=== PATIENT | female | born 1960 | race Caucasian/White ===

== ENCOUNTER → 2018-02-15 | Outpatient (CLI) | payer OTHER ==
[2018-02-15 17:48] LABS: Basophils # (A) 0.1 k/uL (0-0.2); Basophils % (A) 1 %; Eosinophils # (A) 0.2 k/uL (0-0.7); Eosinophils % (A) 2 %; HCT 44.3 % (34.0-46.0); HGB 14.4 gm/dL (11.4-16.0); Lymphocytes # (A) 2.8 k/uL (1.0-4.8); Lymphocytes % (A) 30 %; MCH 26.1 pg (25.0-35.0); MCHC 32.4 g/dL (31.0-37.0); MCV 80.4 fL (80.0-100.0); Monocytes # (A) 0.5 k/uL (0-1.0); Monocytes % (A) 6 %; Neutrophils # (A) 5.5 k/uL (1.3-7.7); Neutrophils % (A) 60 %; Platelet Count 213 k/uL (150-450); RBC 5.52 m/uL (3.80-5.40); RDW 14.2 % (11.5-15.5); WBC 9.3 k/uL (3.8-10.6)
[2018-02-15 17:51] LABS: Albumin 4.3 g/dL (3.5-5.0); Calcium 9.8 mg/dL (8.4-10.2); Potassium 4.2 mmol/L (3.5-5.1); Total Bilirubin 0.5 mg/dL (0.2-1.3); Total Protein 7.7 g/dL (6.3-8.2)
--- NOTE | 2018-02-15 17:53 | CT ---
EXAMINATION TYPE: CT abdomen pelvis w con DATE OF EXAM: 02/15/2018 COMPARISON: 09/18/2010 HISTORY: Epigastric pain, nausea, and abdominal distention x5 days. CT DLP: 1727.6 mGycm Automated exposure control for dose reduction was used. TECHNIQUE: Helical acquisition of images was performed from the lung bases through the pelvis. CONT RAST: Performed with Oral Contrast and with IV Contrast, patient injected with 100ml mL of Isovue M300. FINDINGS: Lung bases are clear. There is no pleural effusion. Heart size is normal. There is no pericardial eff usion stomach appears normal. Spleen and pancreas appear normal. There is small calcified gallstone. Bile ducts are not dilated. Th ere is mild tortuous dilated splenic vein and also portal veins within the liver consistent with vari uriel. Superior mesenteric vein is not dilated. There is no discrete liver mass. There is no adrenal mass. Kidneys have normal size and contour. There is no hydronephrosis. There is normal contrast opacification of the kidneys. Ureters are not dilated. There is no retroperitoneal ad enopathy. There is no mesenteric adenopathy or edema. Appendix appears normal. I see no intestinal wall thicken ing. There are no dilated loops. There is no ascites. There are a few sigmoid diverticula. There is n o sign of diverticulitis. There is no free fluid in the pelvis. There is no sign of free air. There i s no inguinal hernia or adenopathy. There is narrowing of L5-S1 disc space. The bony pelvis appears i ntact. I see no bony destructive process. Abdominal soft tissues appear unremarkable. IMPRESSION: THERE ARE ISOLATED SIGMOID DIVERTICULA WITHOUT EVIDENCE OF DIVERTICULITIS. THERE ARE SPLENIC AND PORT AL VARICES UNCHANGED. SMALL CALCIFIED GALLSTONE APPEARS NEW.
[2018-02-15 18:31] LABS: Erythrocyte Sedimentation Rate 13 mm/hr (0-20)
== END | disposition home or self-care (01) ==
LOC: RADCTMAIN 15:47
PROVIDERS: ATTEND Family Medicine
DX: K57.30 Diverticulosis of large intestine without perforation or abscess without bleeding (principal); K80.20 Calculus of gallbladder without cholecystitis without obstruction; I86.8 Varicose veins of other specified sites; R10.84 Generalized abdominal pain; K56.609 Unspecified intestinal obstruction, unspecified as to partial versus complete obstruction
CPT/HCPCS: 80053; 85652; 85025; 74177; 36415; Q9967

== ENCOUNTER → 2019-05-13 | Outpatient (CLI) | payer OTHER ==
--- NOTE | 2019-05-14 09:18 | XR ---
EXAMINATION TYPE: XR chest 2V DATE OF EXAM: 05/13/2019 COMPARISON: NONE TECHNIQUE: PA and lateral views submitted. HISTORY: Preop, positive TB skin test FINDINGS: The lungs are clear and there is no pneumothorax, pleural effusion, or focal pneumonia. Upper atrop hic and degenerative changes spine. Apical pleural thickening. No pleural calcifications or granuloma . No overt failure. IMPRESSION: 1. No acute process.
== END | disposition home or self-care (01) ==
LOC: RADXRYALE 16:23
PROVIDERS: ATTEND Physician Assistant Medical
DX: Z11.1 Encounter for screening for respiratory tuberculosis (principal)
CPT/HCPCS: 71046

== ENCOUNTER 2022-01-07 21:47 | Emergency (ER) | payer OTHER ==
[2022-01-07 22:27] VITALS: BP 135/82; RESP 18
[2022-01-07] MEDS ORDERED: ACETAMINOPHEN TAB 500 MG TAB PO STA (23:13)
--- NOTE | 2022-01-07 23:42 | ED ---
General Adult HPI - General Chief complaint: Fever Stated complaint: Fever,irregular urination Time Seen by Provider: 01/07/22 23:07 Source: patient, RN notes reviewed Mode of arrival: ambulatory - History of Present Illness Initial comments: 61-year-old female presents to the emergency Department with complaints of fever and chills, cough and congestion, and body aches, onset this afternoon. States she has had close contact COVID exposure, but tested negative with a home kit. Took Motrin around 1600 today. Also reports concern about possible UTI as she has had some urinary frequency today, though does state she has been riding her bike more often and her perineal area is a bit sore. Denies chest pain, abdominal pain, nausea, vomiting, diarrhea, or hematuria. - Related Data Home Medications Medication Instructions Recorded Confirmed Citalopram Hydrobromide [CeleXA] 40 mg PO DAILY 02/05/15 02/09/15 Esomeprazole Magnesium [NexIUM 22.3 mg PO Q48H 02/05/15 02/09/15 24Hr] Levothyroxine Sodium [Synthroid] 88 mcg PO DAILY 02/05/15 02/09/15 Previous Rx's Medication Instructions Recorded Nirmatrelvir/Ritonavir [Paxlovid 1 each PO BID 5 Days #10 tab 01/08/22 2X150 mg-100 mg (Eua)] Allergies Allergy/AdvReac Type Severity Reaction Status Date / Time cephalexin monohydrate Allergy Rash/Hives,ITCHY Verified 01/07/22 22:27 [From Keflex] MOUTH clarithromycin [From Biaxin] Allergy Rash/Hives,ITCHY Verified 01/07/22 22:27 MOUTH levofloxacin [From Levaquin] Allergy Rash/Hives,ITCHY Verified 01/07/22 22:27 MOUTH Sulfa (Sulfonamide Allergy Rash/Hives, Verified 01/07/22 22:27 Antibiotics) ITCHY MOUTH Review of Systems ROS Statement: Those systems with pertinent positive or pertinent negative responses have been documented in the HPI. ROS Other: All systems not noted in ROS Statement are negative. Past Medical History Past Medical History: GERD/Reflux, Hypertension, Thyroid Disorder Additional Past Medical History / Comment(s): HX OF DIVERTICULITIS History of Any Multi-Drug Resistant Organisms: None Reported Past Surgical History: Hysterectomy, Uterine Ablation Past Anesthesia/Blood Transfusion Reactions: No Reported Reaction Past Psychological History: Depression Smoking Status: Never smoker Past Alcohol Use History: Rare Past Drug Use History: None Reported General Exam Limitations: no limitations (Well-developed, well-nourished ill-appearing female in no acute distress. Initial temperature 98.0, pulse 110, respirations 18, blood pressure 135/82, pulse ox 98% on room air.) General appearance: alert, in no apparent distress ENT exam: Present: normal exam, normal oropharynx, mucous membranes moist Respiratory exam: Present: normal lung sounds bilaterally. Absent: respiratory distress, wheezes, rales, rhonchi, stridor, chest wall tenderness Cardiovascular Exam: Present: regular rate, normal rhythm, tachycardia, normal heart sounds. Absent: systolic murmur, diastolic murmur, rubs, gallop, clicks GI/Abdominal exam: Present: soft, normal bowel sounds. Absent: distended, tenderness, guarding, rebound, rigid Back exam: Absent: CVA tenderness (R), CVA tenderness (L) Neurological exam: Present: alert, oriented X3, CN II-XII intact Psychiatric exam: Present: flat affect Skin exam: Present: warm, dry, intact, normal color Course Vital Signs 01/07/22 01/08/22 01/08/22 22:23 00:14 01:26 Temperature 98 F 100.8 F H 102.1 F H Pulse Rate 110 H 115 H 114 H Respiratory 18 18 Rate Blood Pressure 135/82 O2 Sat by Pulse 98 96 96 Oximetry - Reevaluation(s) Reevaluation #1: 01/08/22 00:37 Upon reassessment, patient continues to be feeling poorly and temperature remains elevated. She will be given a dose of Motrin while remainder of laboratory studies are pending. 01/08/22 01:20 Reports some improvement. Discussed risks and benefits of Paxlovid and patient requests prescription. She will be discharged home with isolation precautions and strict return parameters. Medical Decision Making - Medical Decision Making 61-year-old female with a past medical history of hypertension presents to the emergency department for evaluation of fever, chest congestion, body aches. Upon exam, patient is ill-appearing but in no acute distress. She is febrile and mildly tachycardic. Pulse ox is greater than 98% on room air. Lung sounds are clear to auscultation. Chest x-ray is unremarkable. Laboratory studies show positive Covid. She was given Tylenol and Motrin for fever (which remains elevated upon departure). Prescribed Paxlovid after reviewing home medications. Encouraged to follow up with PCP for a recheck this week. Instructed on isolation precautions. Return parameters were discussed in detail. Patient verbalizes understanding and agrees with this plan. Attending: Gumaro. - Lab Data Lab Results 01/07/22 01/07/22 01/07/22 Range/Units 23:24 23:45 23:45 Urine Color Yellow Urine Appearance Clear (Clear) Urine pH 6.0 (5.0-8.0) Ur Specific [place] 1.018 (1.001-1.035) Urine Protein Negative (Negative) Urine Glucose (UA) Negative (Negative) Urine Ketones Negative (Negative) Urine Blood Negative (Negative) Urine Nitrite Negative (Negative) Urine Bilirubin Negative (Negative) Urine Urobilinogen <2.0 (<2.0) mg/dL Ur Leukocyte Esterase Trace H (Negative) Urine RBC 1 (0-5) /hpf Urine WBC 10 H (0-5) /hpf Ur Squamous Epith Cells 1 (0-4) /hpf Urine Bacteria Rare H (None) /hpf Urine Mucus Rare H (None) /hpf Coronavirus (PCR) Detected A (Not Detectd) Influenza Type A RNA Not Detected (Not Detectd) Influenza Type B (PCR) Not Detected (Not Detectd) - Radiology Data Radiology results: report reviewed, image reviewed Two-view chest x-ray was obtained. Report was reviewed in its entirety. Impres raj per Dr. Estrada is normal chest. No change. Disposition Clinical Impression: Fever, COVID-19 Disposition: HOME SELF-CARE Condition: Stable Instructions (If sedation given, give patient instructions): Coronavirus Disease 2019 (COVID-19) Additional Instructions: Alternate Tylenol and Motrin for fever control. Increase fluids. Consider an electrolyte solution such as Gatorade or Powerade. You are being prescribed the antiviral medication Paxlovid. Current CDC guidelines include isolation at home for the next 5 days, then wearing a mask in public for the subsequent 5 days. Follow-up with your PCP for a recheck via telephone or video visit this week. Return to the emergency department with any new, worsening, or concerning symptoms such as shortness of breath or chest pain. Prescriptions: Nirmatrelvir/Ritonavir [Paxlovid 2X150 mg-100 mg (Eua)] 1 each PO BID 5 Days #10 tab Is patient prescribed a controlled substance at d/c from ED?: No Referrals: Nonstaff,Physician [REFERRING] - 1-2 days Time of Disposition: 01:26
--- NOTE | 2022-01-08 | XR ---
EXAMINATION TYPE: XR chest 2V DATE OF EXAM: 01/07/2022 COMPARISON: 05/13/2019 HISTORY: Cough and congestion TECHNIQUE: 2 view FINDINGS: Heart and mediastinum are normal. Lungs are clear. Diaphragm is normal. Bony thorax is inta ct. IMPRESSION: Normal chest. No change.
[2022-01-08 00:23] LABS: Appearance,Urine Clear (Clear); Bacteria,Urine Rare /hpf; Bilirubin,Urine Negative (Negative); Blood,Urine Negative (Negative); Color,Urine Yellow; Glucose,Urine (UA) Negative (Negative); Ketones,Urine Negative (Negative); Leukocyte Esterase,Urine Trace (Negative); Mucus,Urine Rare /hpf; Nitrite,Urine Negative (Negative); Protein,Urine Negative (Negative); RBC,Urine 1 /hpf (0-5); Specific Gravity,Urine 1.018 (1.001-1.035); Squamous Epithelial Cell,Urine 1 /hpf (0-4); Urobilinogen,Urine <2.0 mg/dL (<2.0); WBC,Urine 10 /hpf (0-5)
[2022-01-08] MEDS ORDERED: IBUPROFEN 600 MG TAB PO STA (00:36)
[2022-01-08 01:27] VITALS: PULSE 114; TEMP 102.1
== END 2022-01-08 01:39 | disposition home or self-care (01) ==
LOC: EC 21:47
DX: U07.1 COVID-19 (principal); I10 Essential (primary) hypertension; K21.9 Gastro-esophageal reflux disease without esophagitis; E07.9 Disorder of thyroid, unspecified; F32.A Depression, unspecified; Z87.891 Personal history of nicotine dependence; Z79.83 Long term (current) use of bisphosphonates; Z79.899 Other long term (current) drug therapy; Z88.1 Allergy status to other antibiotic agents; Z88.2 Allergy status to sulfonamides; Z79.890 Hormone replacement therapy
CPT/HCPCS: 71046; 81001; 87502; 87635; 99283

== ENCOUNTER 2022-12-17 01:01 | Observation (INO) | payer OTHER ==
[2022-12-17] MEDS ORDERED: ASPIRIN 81 MG PO STA (01:23)
--- NOTE | 2022-12-17 01:27 | ED ---
Chest Pain HPI - General Chief Complaint: Chest Pain Stated Complaint: Chest pain Time Seen by Provider: 12/17/22 01:10 Source: family Mode of arrival: wheelchair Limitations: no limitations - History of Present Illness Initial Comments: Patient is a 62-year-old female presenting to the emergency room with complaints of chest tightness and associated shortness of breath at the time of chest tightness which occurred twice prior to arrival however she has no chest pain or shortness of breath at the time of exam. She reports she initially had chest tightness on the left side of her chest and then on the way to the emergency room she developed a tightness again with associated shortness of breath as stated above she has none at this time. She denies any aggravating or alleviating factors to her symptoms previously and her chest tightness is not reproducible. She does admit to high stress levels at home due to recent suicide of her son-in-law with the plans taking place over the last few days. She denies any other complaints or concerns at this time including any abdominal pain, orthopnea, lower extremity swelling, headache, dizziness, diaphoresis, cough, congestion, fevers or chills. She has a past medical history significant for GERD, hypertension, anxiety and depression. - Related Data Home Medications Medication Instructions Recorded Confirmed Citalopram Hydrobromide [CeleXA] 40 mg PO DAILY 02/05/15 02/09/15 Esomeprazole Magnesium [NexIUM 22.3 mg PO Q48H 02/05/15 02/09/15 24Hr] Levothyroxine Sodium [Synthroid] 88 mcg PO DAILY 02/05/15 02/09/15 Allergies Allergy/AdvReac Type Severity Reaction Status Date / Time cephalexin monohydrate Allergy Rash/Hives,ITCHY Verified 12/17/22 01:08 [From Keflex] MOUTH clarithromycin [From Biaxin] Allergy Rash/Hives,ITCHY Verified 12/17/22 01:08 MOUTH levofloxacin [From Levaquin] Allergy Rash/Hives,ITCHY Verified 12/17/22 01:08 MOUTH Sulfa (Sulfonamide Allergy Rash/Hives, Verified 12/17/22 01:08 Antibiotics) ITCHY MOUTH Review of Systems ROS Statement: Those systems with pertinent positive or pertinent negative responses have been documented in the HPI. ROS Other: All systems not noted in ROS Statement are negative. Past Medical History Past Medical History: GERD/Reflux, Hypertension, Thyroid Disorder Additional Past Medical History / Comment(s): HX OF DIVERTICULITIS History of Any Multi-Drug Resistant Organisms: None Reported Past Surgical History: Hysterectomy, Uterine Ablation Past Anesthesia/Blood Transfusion Reactions: No Reported Reaction Past Psychological History: Anxiety, Depression Smoking Status: Never smoker Past Alcohol Use History: Rare Past Drug Use History: None Reported General Exam Limitations: no limitations General appearance: alert, in no apparent distress Head exam: Present: atraumatic, normocephalic, normal inspection Eye exam: Present: normal appearance, PERRL, EOMI. Absent: scleral icterus, conjunctival injection, periorbital swelling ENT exam: Present: normal exam, mucous membranes moist Neck exam: Present: normal inspection, full ROM. Absent: tenderness Respiratory exam: Present: normal lung sounds bilaterally. Absent: respiratory distress, wheezes, rales, rhonchi, stridor, chest wall tenderness Cardiovascular Exam: Present: regular rate, normal rhythm, normal heart sounds. Absent: systolic murmur, diastolic murmur, rubs, gallop, clicks GI/Abdominal exam: Present: soft, normal bowel sounds. Absent: distended, tenderness, guarding, rebound, rigid Extremities exam: Present: normal inspection, normal capillary refill. Absent: pedal edema, joint swelling Back exam: Present: normal inspection, full ROM Neurological exam: Present: alert, oriented X3, CN II-XII intact Psychiatric exam: Present: normal affect, normal mood Skin exam: Present: warm, dry, intact, normal color. Absent: rash Course Vital Signs 12/17/22 12/17/22 12/17/22 01:06 01:08 01:30 Temperature 98.4 F Pulse Rate 71 66 Pulse Rate [ 66 Director Emergency Services ] Respiratory 18 Rate Blood Pressure 154/76 115/87 O2 Sat by Pulse 97 93 L Oximetry 12/17/22 02:00 Temperature Pulse Rate 68 Pulse Rate [ Director Emergency Services ] Respiratory Rate Blood Pressure 116/60 O2 Sat by Pulse 94 L Oximetry Chest Pain MDM - MDM Was pt. sent in by a medical professional or institution (, PA, VICE PRESIDENT OF PROCUREMENT, urgent care, hospital, or custodial...) When possible be specific @ -No Did you speak to anyone other than the patient for history (EMS, parent, family, police, friend...)? What history was obtained from this source @ -No Did you review nursing and triage notes (agree or disagree)? Why? @ -I reviewed and agree with nursing and triage notes Were old charts reviewed (outside hosp., previous admission, EMS record, old EKG, old radiological studies, urgent care reports/EKG's, custodial records)? Report findings @ -No old charts were reviewed Differential Diagnosis (chest pain, altered mental status, abdominal pain women, abdominal pain men, vaginal bleeding, weakness, fever, dyspnea, syncope, headache, dizziness, GI bleed, back pain, seizure, CVA, palpatations, mental health, musculoskeletal)? @ -Differential Chest Pain: Stable Angina, Unstable Angina, STEMI, NSTEMI Aortic Dissection, Pneumothorax, Musculoskeletal, Esophageal Spasm GERD, Cholecystitis, Pancreatitis, Zoster, this is not meant to be an all-inclusive list. EKG interpreted by me (3pts min.). @ -Sinus rhythm, ventricular rate 70 bpm, OH interval 145 ms, QRS duration 97 ms, QT/QTC 409/129 ms, PRT axes 45, 43, 57 X-rays interpreted by me (1pt min.). @ -Chest x-ray: No consolidation, pneumothorax or pleural effusion. CT interpreted by me (1pt min.). @ -None done U/S interpreted by me (1pt. min.). @ -None done What testing was considered but not performed or refused? (CT, X-rays, U/S, labs)? Why? @ -None What meds were considered but not given or refused? Why? @ -None Did you discuss the management of the patient with other professionals (professionals i.e. , PA, VICE PRESIDENT OF PROCUREMENT, lab, RT, psych nurse, high school social science teacher, set up mechanic coil winding machines, teacher, security public safety officer, hospice case manager)? Give summary @ -Yes, Spoke with Dr. Yao with [facility] regarding patient presentation recommendation of observation stay he is accepting of admission and request cardiology consult Was smoking cessation discussed for >3mins.? @ -No Was critical care preformed (if so, how long)? @ -No Were there social determinants of health that impacted care today? How? (Homelessness, low income, unemployed, alcoholism, drug addiction, transportation, low edu. Level, literacy, decrease access to med. care, correction, rehab)? @ -No Was there de-escalation of care discussed even if they declined (Discuss DNR or withdrawal of care, Hospice)? DNR status @ -No What co-morbidities impacted this encounter? (DM, HTN, Smoking, COPD, CAD, Cancer, CVA, ARF, Chemo, Hep., AIDS, mental health diagnosis, sleep apnea, morbid obesity)? @ -None Was patient admitted / discharged? Hospital course, mention meds given and route, prescriptions, significant lab abnormalities, going to OR and other pertinent info. @ -62-year-old female presenting emergency room with complaints of chest tightness with associated shortness of breath prior to her arrival to the emergency room which is present on exam. Risk factors for coronary artery disease include hypertension age and weight. In the setting of chest pain-free will defer nitrate at this time but will give 324 chewable aspirin and start workup for chest pain with chest x-ray, EKG, CBC, CMP, troponins, magnesium, proBNP, coags and d-dimer. Patient with headache 1 g of Tylenol given with improvement in headache symptoms. CBC shows slightly elevated WBC at 10.8 and low MCV at 77.8 no other abnormalities. CMP shows low potassium at 3.3 repleted orally with 40 mEq of potassium, remaining electrolytes including magnesium normal, BUN elevated at 18 with normal creatinine glucose elevated at 136, troponin negative, proBNP normal. Coags and d-dimer normal. EKG demonstrates sinus rhythm. Chest x-ray with no consolidation, infiltration or cardiomegaly. No acute cardiopulmonary process. Findings discussed with patient and spouse at bedside. Advised due to risk factors recommend observation stay for continued evaluation of laboratory studies and telemetry. Patient is agreeable to observation stay. Spoke with Dr. Yao with [facility] regarding patient presentation recommendation of observation stay he is accepting of admission and request cardiology consult will place cardiology consult with admission orders. Will admit patient to observation unit in stable condition under [facility] with consult to cardiology for further evaluation and treatment of chest pain. Undiagnosed new problem with uncertain prognosis? @ -No Drug Therapy requiring intensive monitoring for toxicity (Heparin, Nitro, Insulin, Cardizem)? @ -No Were any procedures done? @ -No Diagnosis/symptom? @ -Hypokalemia Acute, or Chronic, or Acute on Chronic? @ -Acute Uncomplicated (without systemic symptoms) or Complicated (systemic symptoms)? @ -Uncomplicated Side effects of treatment? @ -none Exacerbation, Progression, or Severe Exacerbation] @ -no Poses a threat to life or bodily function? @ -no Diagnosis/symptom? @ -Chest pain Acute, or Chronic, or Acute on Chronic? @ -Acute Uncomplicated (without systemic symptoms) or Complicated (systemic symptoms)? @ -Complicated Side effects of treatment? @ -No Exacerbation, Progression, or Severe Exacerbation? @ -No Poses a threat to life or bodily function? How? (Chest pain, [place], [place], pneumonia, PE, COPD, DKA, ARF, appy, cholecystitis, CVA, Diverticulitis, Homicidal, Suicidal, threat to staff... and all critical care pts) @ -Yes, chest pain with risk factors for coronary artery disease. Case discussed with Dr. Matthews Disposition Clinical Impression: Chest pain Disposition: ADMITTED IP TO THIS HOSP Condition: Stable Referrals: Ashkan Rose DO [Primary Care Provider] - 1-2 days Time of Disposition: 03:05
[2022-12-17] MEDS ORDERED: ACETAMINOPHEN TAB 500 MG TAB PO STA (01:42)
[2022-12-17 01:49] LABS: ALT 19 U/L (4-34); AST 16 U/L (14-36); African American GFR (CKD) 76 (>60 ml/min/1.73 sqM); Alkaline Phosphatase 76 U/L (38-126); Anion Gap 10 mmol/L; Blood Urea Nitrogen 18 mg/dL (7-17); Carbon Dioxide 28 mmol/L (22-30); Chloride 99 mmol/L (98-107); Glucose 136 mg/dL (74-99); Non-African American GFR(CKD) 66 (>60 ml/min/1.73 sqM); Potassium 3.3 mmol/L (3.5-5.1); Sodium 137 mmol/L (137-145); Total Bilirubin 0.5 mg/dL (0.2-1.3); Total Protein 7.2 g/dL (6.3-8.2)
[2022-12-17] MEDS ORDERED: POTASSIUM CHLORIDE ER 20 MEQ TAB.ER PO STA (01:50)
[2022-12-17 01:58] LABS: NT-Pro-B-Type Natriuretic Pept 41 pg/mL
[2022-12-17 02:00] LABS: Basophils # (A) 0.1 k/uL (0-0.2); Basophils % (A) 1 %; Eosinophils # (A) 0.2 k/uL (0-0.7); Eosinophils % (A) 2 %; HCT 40.7 % (34.0-46.0); HGB 14.2 gm/dL (11.4-16.0); Lymphocytes # (A) 3.4 k/uL (1.0-4.8); Lymphocytes % (A) 31 %; MCH 27.2 pg (25.0-35.0); MCV 77.8 fL (80.0-100.0); Mean Platelet Volume 8.2; Monocytes # (A) 0.8 k/uL (0-1.0); Monocytes % (A) 7 %; Neutrophils # (A) 6.1 k/uL (1.3-7.7); Neutrophils % (A) 57 %; Platelet Count 167 k/uL (150-450); RBC 5.23 m/uL (3.80-5.40); RDW 14.2 % (11.5-15.5); WBC 10.8 k/uL (3.8-10.6)
[2022-12-17 02:04] LABS: INR 0.9 (<1.2); Partial Thromboplastin Time 25.7 sec (22.0-30.0); Prothrombin Time 9.7 sec (9.0-12.0)
[2022-12-17] MEDS ORDERED: MORPHINE SULFATE 4 MG/ML SYRINGE IV PRN (02:20)
[2022-12-17] MEDS ORDERED: ACETAMINOPHEN TAB 325 MG TAB PO PRN (02:20)
[2022-12-17] MEDS ORDERED: traMADol 50 MG TAB PO PRN (02:20)
[2022-12-17] MEDS ORDERED: ONDANSETRON 4 MG/2 ML VIAL IVP PRN (02:20)
[2022-12-17] MEDS ORDERED: NALOXONE 0.4 MG/ML 1 ML VIAL IV PRN (02:20)
--- NOTE | 2022-12-17 04:45 | XR ---
EXAM: XR Chest, 2 Views CLINICAL HISTORY: ITS.REASON XR Reason: Chest Pain TECHNIQUE: Frontal and lateral views of the chest. COMPARISON: Chest x-ray 01/07/2022 FINDINGS: Lungs: No consolidation. No overt edema. Pleural space: No pleural effusion. No pneumothorax. Heart: Unremarkable. No cardiomegaly. Bones/joints: Unremarkable. No fracture or malalignment. IMPRESSION: No acute cardiopulmonary abnormality.
--- NOTE | 2022-12-17 05:11 | P.HPIM ---
History of Present Illness H&P Date: 12/17/22 The patient is a 62-year-old female with a PMH of hypertension and hypothyroidism who presents to the emergency room with complaints of chest pain or shortness of breath. The patient reports she has been experiencing these symptoms all throughout the day today, occurring intermittently, lasting for several minutes at a time while at rest, and then resolving spontaneously. She reported feeling at her baseline at the time of interview. She denies experiencing fever, chills, cough. Also denied nausea, vomiting, diaphoresis. Patient denied lower extremity swelling or pain. In the emergency room a chest x-ray was unremarkable. EKG revealed sinus rhythm at [address]/T-wave changes as reviewed by me. ED documentation reviewed and case discussed with ED provider. Laboratory evaluation was remarkable for leukocytosis of 10.8 with sodium 3.3 and troponin less than 0.012. Review of systems: Pertinent positives and negatives as discussed in HPI, a complete review of systems was performed and all other systems are negative. Physical examination: Vital signs reviewed General: non toxic, no distress, appears at stated age, normal weight Derm: no unusual rashes/lesions, warm Head: atraumatic, normocephalic, symmetric Eyes: EOMI, no lid lag, anicteric sclera, pupils equal round reactive to light ENT: Nose and ears atraumatic Neck: No cervical lymphadenopathy, trachea midline, supple Mouth: no lip lesion, mucus membranes moist Cardiovascular: S1S2 reg, no murmur, positive dorsalis pedis pulse bilateral, no edema Lungs: CTA bilateral, no rhonchi, no rales, no accessory muscle use Abdominal: soft, nontender to palpation, no guarding Ext: muscle strength 5 out of 5 in all 4 extremities grossly, no gross muscle atrophy, no contractures, Neuro: CN II-XI grossly intact, no gross focal neuro deficits Psych: Alert, oriented, appropriate affect Assessment: Chest pain, rule out ACS Hypokalemia Hyperglycemia Leukocytosis Microcytosis Chronic conditions: Hypertension, hypothyroidism Imaging: In the emergency room a chest x-ray was unremarkable. EKG revealed sinus rhythm at [address]/T-wave changes as reviewed by me. Data Review: Laboratory evaluation was remarkable for leukocytosis of 10.8 with sodium 3.3 and troponin less than 0.012. Plan: Cardiac consulted Cardiac monitoring Trend troponin Status post aspirin Replace potassium levels and monitor Check A1c Leukocytosis likely due to acute stressor with no signs of active infection at this time Check iron panel DVT prophylaxis: Lovenox The patient is admitted with an anticipated less than 2 midnight stay for evaluation of chest pain CODE STATUS: Full Code Discussed with: Patient Anticipated discharge place: Home Past Medical History Past Medical History: GERD/Reflux, Hypertension, Thyroid Disorder Additional Past Medical History / Comment(s): HX OF DIVERTICULITIS History of Any Multi-Drug Resistant Organisms: None Reported Past Surgical History: Hysterectomy, Uterine Ablation Past Anesthesia/Blood Transfusion Reactions: No Reported Reaction Past Psychological History: Anxiety, Depression Smoking Status: Never smoker Past Alcohol Use History: Rare Past Drug Use History: None Reported - Past Family History Mother Family Medical History: Hypertension Medications and Allergies Home Medications Medication Instructions Recorded Confirmed Type Citalopram Hydrobromide [CeleXA] 40 mg PO DAILY 02/05/15 02/09/15 History Esomeprazole Magnesium [NexIUM 22.3 mg PO Q48H 02/05/15 02/09/15 History 24Hr] Levothyroxine Sodium [Synthroid] 88 mcg PO DAILY 02/05/15 02/09/15 History Allergies Allergy/AdvReac Type Severity Reaction Status Date / Time cephalexin monohydrate Allergy Rash/Hives,ITCHY Verified 12/17/22 01:08 [From Keflex] MOUTH clarithromycin [From Biaxin] Allergy Rash/Hives,ITCHY Verified 12/17/22 01:08 MOUTH levofloxacin [From Levaquin] Allergy Rash/Hives,ITCHY Verified 12/17/22 01:08 MOUTH Sulfa (Sulfonamide Allergy Rash/Hives, Verified 12/17/22 01:08 Antibiotics) ITCHY MOUTH Physical Exam Vitals: Vital Signs Temp Pulse Pulse Resp BP Pulse Ox 12/17/22 04:30 55 L 18 106/61 94 L 12/17/22 04:00 55 L 18 106/55 95 12/17/22 03:30 70 18 110/68 96 12/17/22 03:00 81 105/65 94 L 12/17/22 02:30 75 110/60 94 L 12/17/22 02:00 68 116/60 94 L 12/17/22 01:30 66 115/87 93 L 12/17/22 01:08 66 12/17/22 01:06 98.4 F 71 18 154/76 97 Intake and Output 12/16/22 12/16/22 12/17/22 14:59 22:59 06:59 Other: Weight 108.862 kg Results CBC & Chem 7: 12/17/22 01:12 12/17/22 01:12 Labs: Abnormal Lab Results - Last 24 Hours (Table) 12/17/22 12/17/22 Range/Units 01:12 01:12 WBC 10.8 H (3.8-10.6) k/uL MCV 77.8 L (80.0-100.0) fL Potassium 3.3 L (3.5-5.1) mmol/L BUN 18 H (7-17) mg/dL Glucose 136 H (74-99) mg/dL
[2022-12-17 07:51] VITALS: BP 114/76; PULSE 53; RESP 14; TEMP 97.8
[2022-12-17] MEDS ORDERED: ENOXAPARIN 40 MG/0.4 ML SYRINGE SQ SCH (09:00)
--- NOTE | 2022-12-17 11:20 | P.CRDCN ---
History of Present Illness Consult date: 12/17/22 Consult reason: chest pain History of present illness: The patient is a 62-year-old female with past medical history of hypertension and dyslipidemia, who presented to the hospital with new onset of chest discomfort. The patient states she has been under increased stress, as her son-in-law recently committed suicide. She had been in the process of planning his earlier in the day. Yesterday evening she was sitting in her recliner chair when she developed a squeezing sensation in her chest. She states this sensation would come and go, and lasted for approximately an hour and a half. No other associated symptoms. No dizziness, diaphoresis, or shortness of breath. She had more chest discomfort in the car on the way to the hospital. DIAGNOSTICS: EKG shows sinus rhythm without ST or T-wave abnormalities Chest x-ray shows no acute cardiopulmonary abnormality Lab data: WBC 10.8, hematocrit 40.7, hemoglobin 14.2, platelet 167, d-dimer 0.3, troponins negative 3, sodium 137, potassium 3.3, BUN 18, creatinine 0.95 and AST 16, ALT 19 REVIEW OF SYSTEMS: No fever or chills. No cough or expectoration. No diaphoresis. Patient denies headache, dizziness, blurred vision, double vision. Patient denies any stomach discomfort. No nausea, vomiting. No hematochezia. No hematemesis. Denies any black stools or blood in his stools. Denies dysuria or hematuria. No muscle weakness or numbness. No recurrence and chest pain. No shortness of breath. PHYSICAL EXAMINATION: This is a 62-year-old female in no apparent distress at the time of my examination. HEENT: Head is atraumatic, normocephalic. Pupils are equal, round. Mucous mem branes of the mouth are moist. Neck is supple. There is no jugular venous distention. No carotid bruit is heard. CHEST EXAMINATION: Lungs are clear to auscultation. No chest wall tenderness is noted on palpation or with deep breathing. HEART EXAMINATION: Heart regular rate and rhythm. S1, S2 heard. No murmurs, gallops or rub. ABDOMEN: Soft, nontender. Bowel sounds are heard. No organomegaly noted. EXTREMITIES: 2+ peripheral pulses with no evidence of peripheral edema and no calf tenderness noted. NEUROLOGIC EXAMINATION: Patient is awake, alert and oriented x3. FINAL ASSESSMENT AND PLAN: Chest discomfort, acute coronary syndrome rule out Hypertension Hyperlipidemia Overweight, BMI 38 Family history of coronary artery disease PLAN: Start low-dose statins Repeat fasting lipid profile Patient may be discharged for outpatient stress testing Follow-up with Dr. Brand in 1-2 weeks I am dictating on behalf of Dr Terell Brand's history/physical and assessment/plan. Past Medical History Past Medical History: GERD/Reflux, Hypertension, Thyroid Disorder Additional Past Medical History / Comment(s): HX OF DIVERTICULITIS History of Any Multi-Drug Resistant Organisms: None Reported Past Surgical History: Hysterectomy, Uterine Ablation Past Anesthesia/Blood Transfusion Reactions: No Reported Reaction Past Psychological History: Anxiety, Depression Smoking Status: Never smoker Past Alcohol Use History: Rare Past Drug Use History: None Reported - Past Family History Mother Family Medical History: Hypertension Medications and Allergies Home Medications Medication Instructions Recorded Confirmed Type Citalopram Hydrobromide [CeleXA] 40 mg PO DAILY 02/05/15 12/17/22 History Levothyroxine Sodium [Synthroid] 25 mcg PO DAILY 12/17/22 12/17/22 History amLODIPine [Norvasc] 5 mg PO DAILY 12/17/22 12/17/22 History hydroCHLOROthiazide [Hydrodiuril] 25 mg PO DAILY 12/17/22 12/17/22 History Allergies Allergy/AdvReac Type Severity Reaction Status Date / Time cephalexin monohydrate Allergy Rash/Hives,ITCHY Verified 12/17/22 10:33 [From Keflex] MOUTH clarithromycin [From Biaxin] Allergy Rash/Hives,ITCHY Verified 12/17/22 10:33 MOUTH levofloxacin [From Levaquin] Allergy Rash/Hives,ITCHY Verified 12/17/22 10:33 MOUTH Sulfa (Sulfonamide Allergy Rash/Hives, Verified 12/17/22 10:33 Antibiotics) ITCHY MOUTH Physical Exam Vitals: Vital Signs Temp Pulse Pulse Resp BP BP Pulse Ox 12/17/22 07:49 97.8 F 53 L 14 114/76 97 12/17/22 04:30 55 L 18 106/61 94 L 12/17/22 04:00 55 L 18 106/55 95 12/17/22 03:30 70 18 110/68 96 12/17/22 03:00 81 105/65 94 L 12/17/22 02:30 75 110/60 94 L 12/17/22 02:00 68 116/60 94 L 12/17/22 01:30 66 115/87 93 L 12/17/22 01:08 66 12/17/22 01:06 98.4 F 71 18 154/76 97 Intake and Output 12/16/22 12/17/22 12/17/22 22:59 06:59 14:59 Other: Weight 108.862 kg Results 12/17/22 01:12 12/17/22 01:12 Cardiac Enzymes 12/17/22 12/17/22 12/17/22 Range/Units 01:12 01:12 05:04 AST 16 (14-36) U/L Troponin I <0.012 <0.012 (0.000-0.034) ng/mL 12/17/22 Range/Units 07:30 AST (14-36) U/L Troponin I <0.012 (0.000-0.034) ng/mL Coagulation 12/17/22 Range/Units 01:12 PT 9.7 (9.0-12.0) sec APTT 25.7 (22.0-30.0) sec CBC 12/17/22 Range/Units 01:12 WBC 10.8 H (3.8-10.6) k/uL RBC 5.23 (3.80-5.40) m/uL Hgb 14.2 (11.4-16.0) gm/dL Hct 40.7 (34.0-46.0) % Plt Count 167 (150-450) k/uL Comprehensive Metabolic Panel 12/17/22 Range/Units 01:12 Sodium 137 (137-145) mmol/L Potassium 3.3 L (3.5-5.1) mmol/L Chloride 99 (98-107) mmol/L Carbon Dioxide 28 (22-30) mmol/L BUN 18 H (7-17) mg/dL Creatinine 0.95 (0.52-1.04) mg/dL Glucose 136 H (74-99) mg/dL Calcium 9.0 (8.4-10.2) mg/dL AST 16 (14-36) U/L ALT 19 (4-34) U/L Alkaline Phosphatase 76 (38-126) U/L Total Protein 7.2 (6.3-8.2) g/dL Albumin 4.0 (3.5-5.0) g/dL Current Medications Generic Name Dose Route Start Last Admin Trade Name Freq PRN Reason Stop Dose Admin Acetaminophen 650 mg 12/17/22 02:20 Acetaminophen Tab 325 Mg Tab PO Q6HR PRN Mild Pain or Fever > 100.5 Amlodipine Besylate 5 mg 12/18/22 09:00 Amlodipine 5 Mg Tab PO DAILY [facility] Atorvastatin Calcium 10 mg 12/17/22 21:00 Atorvastatin 10 Mg Tab PO HS [facility] Enoxaparin Sodium 40 mg 12/17/22 09:00 12/17/22 08:29 Enoxaparin 40 Mg/0.4 Ml Syringe SQ 40 mg DAILY [facility] Administration Morphine Sulfate 4 mg 12/17/22 02:20 Morphine Sulfate 4 Mg/Ml Syringe IV Q4HR PRN Severe Pain (Scale 7 to 10) Naloxone HCl 0.2 mg 12/17/22 02:20 Naloxone 0.4 Mg/Ml 1 Ml Vial IV Q2M PRN Opioid Reversal Ondansetron HCl 4 mg 12/17/22 02:20 Ondansetron 4 Mg/2 Ml Vial IVP Q8HR PRN Nausea And Vomiting Tramadol HCl 50 mg 12/17/22 02:20 Tramadol 50 Mg Tab PO Q6H PRN Moderate Pain (Scale 4 to 6) Intake and Output 12/16/22 12/17/22 12/17/22 22:59 06:59 14:59 Other: Weight 108.862 kg 12/17/22 01:12 12/17/22 01:12
[2022-12-17 12:02] LABS: % Iron Saturation 16.02 (12.00-45.00)
--- NOTE | 2022-12-17 12:15 | P.DS ---
Providers Date of admission: 12/17/22 02:20 Expected date of discharge: 12/17/22 Attending physician: Raymond Yao MD Consults: 12/17/22 02:49 Consult Physician Stat Consulting Provider: Max Vallejo Consult Reason/Comments: chest pain Do you want consulting provider notified?: Yes Primary care physician: Ashkan Rose Hospital Course: Discharge Diagnosis: Chest pain, acute coronary event ruled out. EKG is showing normal sinus rhythm. Troponins were trended all negative at less than 0.0123 draws. Patient was evaluated by respiratory care faculty and started on atorvastatin 10 mg daily. Chest pain is believed to be correlated with patient's recent stress as she reports her son-in-law just ended his life. Patient was cleared by respiratory care faculty for outpatient follow-up for recommended echocardiogram and stress test. She was provided with a small prescription of Xanax 0.5 mg tablets 6 doses per her request. Patient instructed she will need to follow up with her primary care doctor, Dr. Rose in 1-3 days along with respiratory care faculty in 1 week. Anxiety and depression, increased secondary to recent personal family stressors. Patient to continue with daily medication regimen with Celexa 40 mg daily and provided with a small prescription for Xanax 0.5 mg twice daily as needed for acute uncontrolled anxiety. Hypertension, appears to be controlled on current medication regimen with Norvasc 5 mg daily. Patient was recommended to take her blood pressures twice daily at home and document these findings in a daily log to bring with her to her next appointment with respiratory care faculty in additional changes can be made to her medication regimen based upon further review of these results. Hyperlipidemia, lipid profile was drawn upon discharge. Results not available at time of discharge. Patient was started on atorvastatin 10 mg nightly and to follow-up with these results with respiratory care faculty upon follow-up appointment. Leukocytosis believed to be secondary to stress response. Hypokalemia, replaced. Hyperglycemia, patient was found to have a hemoglobin A1c of 6.6%. At this time recommend dietary and lifestyle changes and repeat hemoglobin A1c with PCP in 3 months. Macrocytosis, iron profile showing low iron and transferrin. Patient started on ferrous sulfate 325 mg daily. Hospital Course: Patient is a very pleasant 62-year-old female with a past medical history of hypertension and hypothyroidism. She presented to the emergency department with a chief complaint of chest pain and shortness of breath. Patient reports the symptoms waxed and waned throughout the day lasting several minutes at a time while at rest and then resolving without intervention until they returned again later. Patient was seen and fully evaluated in the emergency department. Vital signs upon arrival blood pressure 154/76, heart rate 71, respiratory rate 18, temp 98.4F, SpO2 of 97% on room air. EKG revealing normal sinus rhythm at 70 bpm with no noted T-wave or ST abnormalities upon personal review and interpretation. Chest x-ray negative for acute cardiopulmonary process. Labs completed and reviewed. CBC revealed slightly elevated WBC count of 10.8 and macrocytosis with MCV of 77.8. Coagulation profile unremarkable including negative d-dimer 0.39. BMP revealed hypokalemia with potassium of 3.3, prerenal azotemia with BUN of 18, elevated glucose at 136. Magnesium normal findings at 2.0. Liver profile unremarkable. Troponin negative at less than 0.012 and proBNP of 41. Patient was admitted under services of consultation cardiology. Troponins were trended overnight all negative at less than 0.0123 draws. Iron profile showing low iron of 41 and transferrin of 183. Hemoglobin A1c was elevated slightly at 6.6%. Repeat morning EKG completed again showing normal sinus rhythm at 60 bpm with no noted T-wave or ST abnormalities showing no signs of ischemia upon personal review and interpretation. She was evaluated by respiratory care faculty and started on low-dose atorvastatin 10 mg daily and placed order for repeat fasting lipid profile which she will follow-up with results and office with patient. Cardiology clearing patient from their perspective recommending outpatient echocardiogram and stress test. Patient had full resolution of previous reported chest pain and shortness of breath. She has been walking laps around unit and also denies having any chest pain or difficulty with breathing upon ambulation/exertion. She states she is under a lot of stress as her son-in-law just ended his life and they are in the process of making arrangements for a this week. Patient reports every time she thinks of what happened she just gets very anxious. She reports she previously had a prescription for Xanax 0.5 mg tablets and that this was previously successful in the past and assisting her to control her anxiety. Patient was provided with a small prescription of Xanax 0.5 mg tablets 6 doses in addition to her prescription for atorvastatin 10 mg daily and ferrous sulfate 325 mg daily. Medically, patient is stable at this time and being discharged home. Discharge instructions reviewed with patient and her at bedside. Patient to follow up outpatient with PCP in 1-2 days and with cardiology next week. Physical exam: General: non toxic, no distress, appears at stated age Derm: warm, dry Head: atraumatic, normocephalic, symmetric Eyes: EOMI, no lid lag, anicteric sclera Mouth: no lip lesion, mucus membranes moist Cardiovascular: S1S2 reg, no murmur, positive posterior tibial pulse bilateral, Lungs: CTA bilateral, no rhonchi, no rales , no accessory muscle use Abdominal: soft, nontender to palpation, no guarding, no appreciable organomegaly Ext: no gross muscle atrophy, no edema, no contractures Neuro: CN II-XI grossly intact, no focal neuro deficits Psych: Alert, oriented, appropriate affect A total of 34 minutes of time were spent preparing this complex discharge summary. Pt was discharged on 12/17/22 at 12:14 PM. Patient was seen independently by Nurse Practitioner. This document was prepared using [employer] 3[employer] dictation software. Please allow for errors in marble ceiling installer while rare they do occur. I reviewed the documentation as provided by the MICHELLE above, who is the original author of this note. I agree with the documented assessment and plan, with the following changes: none Patient Condition at Discharge: Stable Plan - Discharge Summary New Discharge Prescriptions: New Atorvastatin [Lipitor] 10 mg PO HS 30 Days #30 tab ALPRAZolam [Xanax] 0.5 mg PO BID PRN #6 tablet PRN Reason: Anxiety Ferrous Sulfate [Feosol] 325 mg PO DAILY 30 Days #30 tab Continue Citalopram Hydrobromide [CeleXA] 40 mg PO DAILY hydroCHLOROthiazide [Hydrodiuril] 25 mg PO DAILY amLODIPine [Norvasc] 5 mg PO DAILY Levothyroxine Sodium [Synthroid] 25 mcg PO DAILY Discontinued Nirmatrelvir/Ritonavir [Paxlovid 2X150 mg-100 mg (Eua)] 1 each PO BID 5 Days #10 tab Discharge Medication List Citalopram Hydrobromide [CeleXA] 40 mg PO DAILY 02/05/15 [History] ALPRAZolam [Xanax] 0.5 mg PO BID PRN #6 tablet 12/17/22 [Rx] Atorvastatin [Lipitor] 10 mg PO HS 30 Days #30 tab 12/17/22 [Rx] Ferrous Sulfate [Feosol] 325 mg PO DAILY 30 Days #30 tab 12/17/22 [Rx] Levothyroxine Sodium [Synthroid] 25 mcg PO DAILY 12/17/22 [History] amLODIPine [Norvasc] 5 mg PO DAILY 12/17/22 [History] hydroCHLOROthiazide [Hydrodiuril] 25 mg PO DAILY 12/17/22 [History] Follow up Appointment(s)/Referral(s): Terell Brand MD [STAFF PHYSICIAN] - 1 Week (Follow-up with Jackie Naik / Dr. Brand in 1-2 weeks Atorvastatin 20 mg by mouth daily Continue amlodipine Hold diuretics patient to call office for follow up outpatient.) Ashkan Rose DO [Primary Care Provider] - 1-2 days Patient Instructions/Handouts: Chest Pain (DC), Iron Rich Diet (DC) Activity/Diet/Wound Care/Special Instructions: Activity: As tolerated. Take breaks as needed. Diet: Heart healthy and carb consistent diet. Avoid salts, or foods with hidden salts and sugars such as canned or boxed foods and frozen dinners. Extra salt makes your heart work harder and traps the fluid in your body for longer. Avoid white bread and rice and foods or beverages high in sugar. Special Instructions: Take all of your medications as directed and remember to keep all of your doctor's appointments and follow-up as needed. Again, I am truly sorry for your loss. But please remember to take care of yourself during this time. Please make sure you are taking your blood pressures twice daily at home and documenting these findings in a daily log to bring with you next week to the respiratory care faculty office. It is also very important to follow- up with the respiratory care faculty and get echocardiogram and stress test completed as discussed with you and your . Hemoglobin A1C 6.6%, encourage dietary and lifestyle changes and avoid added sugars to improve glucose levels. Recommend these lifestyle modifications at this time and outpatient follow up with your PCP for repeat A1c in 3 months. Iron levels were low, you are being discharged home on ferrous sulfate. Also encourage eating foods rich in iron. Thank you for allowing us to participate in your care, it was truly a pleasure having you for our patient!!! Discharge Disposition: HOME SELF-CARE
[2022-12-17] MEDS ORDERED: ATORVASTATIN 10 MG TAB PO SCH (21:00)
[2022-12-18] MEDS ORDERED: amLODIPine 5 MG TAB PO SCH (09:00)
[2022-12-18 23:45] LABS: Chol/HDL Ratio 6.74 Ratio; LDL Cholesterol,Calculated 136.5 mg/dL (0.0-131.0)
== END 2022-12-17 13:03 | disposition home or self-care (01) ==
LOC: EC 01:01 → 6NMEDSUR 02:20
PROVIDERS: ADMIT Internal Medicine; ATTEND Internal Medicine
DX: R07.89 Other chest pain (principal); E87.6 Hypokalemia; R73.9 Hyperglycemia, unspecified; D72.829 Elevated white blood cell count, unspecified; R71.8 Other abnormality of red blood cells; K21.9 Gastro-esophageal reflux disease without esophagitis; I10 Essential (primary) hypertension; F41.9 Anxiety disorder, unspecified; F32.A Depression, unspecified; E78.5 Hyperlipidemia, unspecified; E03.9 Hypothyroidism, unspecified; E66.3 Overweight; Z68.38 Body mass index [BMI] 38.0-38.9, adult; Z79.899 Other long term (current) drug therapy; Z79.890 Hormone replacement therapy; Z88.1 Allergy status to other antibiotic agents; Z88.2 Allergy status to sulfonamides; Z82.49 Family history of ischemic heart disease and other diseases of the circulatory system
CPT/HCPCS: 96372; 99285; 36415; 93005; 85379; 83880; 80053; 80061; 82728; 83540; 83550; 83735; 84484; 85025; 85610; 85730; 83036; 71046; G0378; J1650

== ENCOUNTER → 2024-02-06 | Outpatient (CLI) | payer OTHER ==
--- NOTE | 2024-02-06 16:43 | XR ---
EXAMINATION TYPE: XR chest 2V DATE OF EXAM: 02/06/2024 2:33 PM CLINICAL INDICATION: Female, 63 years old with history of [id number] SOB,COUGH; [facility] COMPARISON: 12/17/2022 TECHNIQUE: XR chest 2V Frontal view of the chest. FINDINGS: Lungs/Pleura: There is no evidence of pleural effusion, focal consolidation, or pneumothorax. Pulmonary vascularity: Unremarkable. Heart/mediastinum: Cardiomediastinal silhouette is unremarkable. Musculoskeletal: No acute osseous pathology. Other findings: None Lines/Tubes: IMPRESSION: No acute cardiopulmonary disease/process. [facility] Nori Khan, , 02/06/2024 4:41 PM
== END | disposition home or self-care (01) ==
LOC: RADXRYALE 14:22
PROVIDERS: ATTEND Physician Assistant
DX: R06.02 Shortness of breath (principal); R05.9 Cough, unspecified
CPT/HCPCS: 71046

== ENCOUNTER 2024-03-02 08:23 | Observation (INO) | payer OTHER ==
--- NOTE | 2024-03-02 08:41 | ED ---
General Adult HPI - General Chief complaint: Chest Pain Stated complaint: Chest Pain Time Seen by Provider: 03/02/24 08:30 Source: patient, family, RN notes reviewed Mode of arrival: ambulatory Limitations: no limitations - History of Present Illness Initial comments: Patient is a 63-year-old female present to the emergency department with concerns with chest discomfort. Patient was getting ready for [employer]. Patient has pressure in her chest rated 4 or 5/10. No associated nausea, dyspnea, or diaphoresis. Patient did have workup for somewhat similar symptoms over a year ago and was found to be noncardiac. Patient did try a Xanax this morning w ithout any improvement of symptoms. Patient denies feeling anxious. - Related Data Home Medications Medication Instructions Recorded Confirmed Citalopram Hydrobromide [CeleXA] 40 mg PO DAILY 02/05/15 03/02/24 Levothyroxine Sodium [Synthroid] 25 mcg PO DAILY 12/17/22 03/02/24 amLODIPine [Norvasc] 5 mg PO DAILY 12/17/22 03/02/24 hydroCHLOROthiazide [Hydrodiuril] 25 mg PO DAILY 12/17/22 03/02/24 ALPRAZolam [Xanax] 0.25 - 0.5 mg PO BID PRN 03/02/24 03/02/24 Esomeprazole Magnesium [NexIUM] 40 mg PO Q48H 03/02/24 03/02/24 Allergies Allergy/AdvReac Type Severity Reaction Status Date / Time cephalexin monohydrate Allergy Rash/Hives,ITCHY Verified 03/02/24 09:40 [From Keflex] MOUTH clarithromycin [From Biaxin] Allergy Rash/Hives,ITCHY Verified 03/02/24 09:40 MOUTH levofloxacin [From Levaquin] Allergy Rash/Hives,ITCHY Verified 03/02/24 09:40 MOUTH Sulfa (Sulfonamide Allergy Rash/Hives, Verified 03/02/24 09:40 Antibiotics) ITCHY MOUTH Review of Systems ROS Statement: Those systems with pertinent positive or pertinent negative responses have been documented in the HPI. ROS Other: All systems not noted in ROS Statement are negative. Constitutional: Denies: fever Eyes: Denies: eye pain ENT: Denies: ear pain Respiratory: Denies: cough, dyspnea Cardiovascular: Reports: as per HPI, chest pain Gastrointestinal: Denies: abdominal pain, vomiting Musculoskeletal: Denies: back pain Past Medical History Past Medical History: GERD/Reflux, Hypertension, Thyroid Disorder Additional Past Medical History / Comment(s): HX OF DIVERTICULITIS History of Any Multi-Drug Resistant Organisms: None Reported Past Surgical History: Hysterectomy, Uterine Ablation Past Anesthesia/Blood Transfusion Reactions: No Reported Reaction Past Psychological History: Anxiety, Depression Smoking Status: Never smoker Past Alcohol Use History: Occasional Past Drug Use History: None Reported - Past Family History Mother Family Medical History: Hypertension General Exam Limitations: no limitations General appearance: alert, in no apparent distress Head exam: Present: normocephalic Eye exam: Present: normal appearance Neck exam: Present: normal inspection Respiratory exam: Present: normal lung sounds bilaterally Cardiovascular Exam: Present: regular rate, normal rhythm, normal heart sounds Expanded Peripheral pulses: 2+: Radial (R), Radial (L), Dorsalis Pedis (R), Dorsalis Pedis (L) GI/Abdominal exam: Present: soft. Absent: tenderness Extremities exam: Present: normal inspection. 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 sent in by a medical professional or institution (Dr. PA, DIGITAL FIELD SERVICE TECHNICIAN, urgent care, hospital, or half-way...) When possible be specific @ -No Did you speak to anyone other than the patient for history (EMS, parent, family, police, friend...)? What history was obtained from this source @ - is present and helps provide additional history including confirmation of onset Did you review nursing and triage notes (agree or disagree)? Why? @ -I reviewed and agree with nursing and triage notes Were old charts reviewed (outside hosp., previous admission, EMS record, old EKG, old radiological studies, urgent care reports/EKG's, half-way records)? Report findings @ -Previous chest x-ray also shows no acute process Differential Diagnosis (chest pain, altered mental status, abdominal pain women, abdominal pain men, vaginal bleeding, weakness, fever, dyspnea, syncope, headache, dizziness, GI bleed, back pain, seizure, CVA, palpatations, mental health, musculoskeletal)? @ -Differential Chest Pain: Stable Angina, Unstable Angina, STEMI, NSTEMI Aortic Dissection, Pneumothorax, Musculoskeletal, Esophageal Spasm GERD, Cholecystitis, Pancreatitis, Zoster, this is not meant to be an all-inclusive list. EKG interpreted by me (3pts min.). @ -As above X-rays interpreted by me (1pt min.). @ -Chest x-ray shows no acute process CT interpreted by me (1pt min.). @ -None done U/S interpreted by me (1pt. min.). @ -None done What testing was considered but not performed or refused? (CT, X-rays, U/S, labs )? Why? @ -None What meds were considered but not given or refused? Why? @ -None Did you discuss the management of the patient with other professionals (professionals i.e. , PA, DIGITAL FIELD SERVICE TECHNICIAN, lab, RT, psych nurse, social media content manager, station jailer, teacher, facility security officer, classification case manager)? Give summary @ -Case was discussed with Dr. Jade who will admit covering Dr. Poole me Was smoking cessation discussed for >3mins.? @ -No Was critical care preformed (if so, how long)? @ -No Were there social determinants of health that impacted care today? How? (Homelessness, low income, unemployed, alcoholism, drug addiction, transportation, low edu. Level, literacy, decrease access to med. care, fpc, rehab)? @ -No Was there de-escalation of care discussed even if they declined (Discuss DNR or withdrawal of care, Hospice)? DNR status @ -No What co-morbidities impacted this encounter? (DM, HTN, Smoking, COPD, CAD, Cancer, CVA, ARF, Chemo, Hep., AIDS, mental health diagnosis, sleep apnea, morbid obesity)? @ -Previous cardiac evaluation over a year ago, approximately year and a half Was patient admitted / discharged? Hospital course, mention meds given and route, prescriptions, significant lab abnormalities, going to OR and other pertinent info. @ -Patient presents with chest discomfort. On reevaluation patient states symptoms have improved however not resolved and still having some mild discomfort. Patient and family updated on results and plan. Patient will be admitted, admission orders written. Cardiac consult placed. Undiagnosed new problem with uncertain prognosis? @ -No Drug Therapy requiring intensive monitoring for toxicity (Heparin, Nitro, Insulin, Cardizem)? @ -No Were any procedures done? @ -No Diagnosis/symptom? @ -Chest pain Acute, or Chronic, or Acute on Chronic? @ -Acute Uncomplicated (without systemic symptoms) or Complicated (systemic symptoms)? @ -Default Side effects of treatment? @ -No Exacerbation, Progression, or Severe Exacerbation? @ -No Poses a threat to life or bodily function? How? (Chest pain, [place], [place], pneumonia, PE, COPD, DKA, ARF, appy, cholecystitis, CVA, Diverticulitis, Homicidal, Suicidal, threat to staff... and all critical care pts) @ -Threat to cardiac function - Lab Data Result diagrams: 03/02/24 09:00 03/02/24 09:00 Lab Results 03/02/24 03/02/24 03/02/24 Range/Units 09:00 09:00 09:00 WBC 8.4 (3.8-10.6) k/uL RBC 5.27 (3.80-5.40) m/uL Hgb 13.7 (11.4-16.0) gm/dL Hct 41.4 (34.0-46.0) % MCV 78.6 L (80.0-100.0) fL MCH 25.9 (25.0-35.0) pg MCHC 33.0 (31.0-37.0) g/dL RDW 14.5 (11.5-15.5) % Plt Count 207 (150-450) k/uL MPV 7.6 Neutrophils % 62 % Lymphocytes % 27 % Monocytes % 6 % Eosinophils % 3 % Basophils % 1 % Neutrophils # 5.2 (1.3-7.7) k/uL Lymphocytes # 2.3 (1.0-4.8) k/uL Monocytes # 0.5 (0-1.0) k/uL Eosinophils # 0.2 (0-0.7) k/uL Basophils # 0.1 (0-0.2) k/uL PT 10.6 (10.0-12.5) sec INR 1.0 (<1.2) APTT 26.1 (22.0-30.0) sec D-Dimer 0.36 (<0.60) mg/L FEU Sodium 140 (137-145) mmol/L Potassium 3.4 L (3.5-5.1) mmol/L Chloride 105 (98-107) mmol/L Carbon Dioxide 27 (22-30) mmol/L Anion Gap 8 mmol/L BUN 14 (7-17) mg/dL Creatinine 0.80 (0.52-1.04) mg/dL Est GFR (CKD-EPI)AfAm >90 (>60 ml/min/1.73 sqM) Est GFR (CKD-EPI)NonAf 80 (>60 ml/min/1.73 sqM) Glucose 127 H (74-99) mg/dL Calcium 9.0 (8.4-10.2) mg/dL Magnesium 1.9 (1.6-2.3) mg/dL Total Bilirubin 0.6 (0.2-1.3) mg/dL AST 14 (14-36) U/L ALT 17 (4-34) U/L Alkaline Phosphatase 75 (38-126) U/L Troponin I (0.000-0.034) ng/mL Total Protein 6.7 (6.3-8.2) g/dL Albumin 4.1 (3.5-5.0) g/dL Amylase 51 (30-110) U/L Lipase 106 (23-300) U/L 03/02/24 Range/Units 09:00 WBC (3.8-10.6) k/uL RBC (3.80-5.40) m/uL Hgb (11.4-16.0) gm/dL Hct (34.0-46.0) % MCV (80.0-100.0) fL MCH (25.0-35.0) pg MCHC (31.0-37.0) g/dL RDW (11.5-15.5) % Plt Count (150-450) k/uL MPV Neutrophils % % Lymphocytes % % Monocytes % % Eosinophils % % Basophils % % Neutrophils # (1.3-7.7) k/uL Lymphocytes # (1.0-4.8) k/uL Monocytes # (0-1.0) k/uL Eosinophils # (0-0.7) k/uL Basophils # (0-0.2) k/uL PT (10.0-12.5) sec INR (<1.2) APTT (22.0-30.0) sec D-Dimer (<0.60) mg/L FEU Sodium (137-145) mmol/L Potassium (3.5-5.1) mmol/L Chloride (98-107) mmol/L Carbon Dioxide (22-30) mmol/L Anion Gap mmol/L BUN (7-17) mg/dL Creatinine (0.52-1.04) mg/dL Est GFR (CKD-EPI)AfAm (>60 ml/min/1.73 sqM) Est GFR (CKD-EPI)NonAf (>60 ml/min/1.73 sqM) Glucose (74-99) mg/dL Calcium (8.4-10.2) mg/dL Magnesium (1.6-2.3) mg/dL Total Bilirubin (0.2-1.3) mg/dL AST (14-36) U/L ALT (4-34) U/L Alkaline Phosphatase (38-126) U/L Troponin I <0.012 (0.000-0.034) ng/mL Total Protein (6.3-8.2) g/dL Albumin (3.5-5.0) g/dL Amylase (30-110) U/L Lipase (23-300) U/L Disposition Clinical Impression: Chest pain Disposition: ADMITTED IP TO THIS HOSP Is patient prescribed a controlled substance at d/c from ED?: No Referrals: Ashkan Rose DO [Primary Care Provider] - 1-2 days Time of Disposition: 10:11
[2024-03-02] MEDS: ASPIRIN 81 MG PO STA (09:01)
[2024-03-02] MEDS: NITROGLYCERIN OINT 1 INCH/GM PACKET TOPICAL STA (09:01)
[2024-03-02 09:20] LABS: Basophils # (A) 0.1 k/uL (0-0.2); Basophils % (A) 1 %; Eosinophils # (A) 0.2 k/uL (0-0.7); Eosinophils % (A) 3 %; HCT 41.4 % (34.0-46.0); HGB 13.7 gm/dL (11.4-16.0); Lymphocytes # (A) 2.3 k/uL (1.0-4.8); Lymphocytes % (A) 27 %; MCH 25.9 pg (25.0-35.0); MCV 78.6 fL (80.0-100.0); Mean Platelet Volume 7.6; Monocytes # (A) 0.5 k/uL (0-1.0); Monocytes % (A) 6 %; Neutrophils # (A) 5.2 k/uL (1.3-7.7); Neutrophils % (A) 62 %; Platelet Count 207 k/uL (150-450); RBC 5.27 m/uL (3.80-5.40); RDW 14.5 % (11.5-15.5); WBC 8.4 k/uL (3.8-10.6)
--- NOTE | 2024-03-02 09:26 | XR ---
EXAMINATION TYPE: XR chest 2V DATE OF EXAM: 03/02/2024 COMPARISON: 02/06/2024 HISTORY: 63-year-old female with chest pain TECHNIQUE: PA and lateral views FINDINGS: The cardiomediastinal silhouette, aorta, and pulmonary vasculature are within normal limits. Lungs an d pleural spaces are clear. IMPRESSION: No acute cardiopulmonary process. [facility] Nori Khan, , 03/02/2024 9:23 AM
[2024-03-02 09:30] LABS: ALT 17 U/L (4-34); AST 14 U/L (14-36); African American GFR (CKD) >90 (>60 ml/min/1.73 sqM); Albumin 4.1 g/dL (3.5-5.0); Alkaline Phosphatase 75 U/L (38-126); Amylase 51 U/L (30-110); Anion Gap 8 mmol/L; Blood Urea Nitrogen 14 mg/dL (7-17); Carbon Dioxide 27 mmol/L (22-30); Chloride 105 mmol/L (98-107); Glucose 127 mg/dL (74-99); Lipase 106 U/L (23-300); Magnesium 1.9 mg/dL (1.6-2.3); Non-African American GFR(CKD) 80 (>60 ml/min/1.73 sqM); Potassium 3.4 mmol/L (3.5-5.1); Sodium 140 mmol/L (137-145); Total Bilirubin 0.6 mg/dL (0.2-1.3); Total Protein 6.7 g/dL (6.3-8.2)
[2024-03-02 09:34] LABS: Partial Thromboplastin Time 26.1 sec (22.0-30.0); Prothrombin Time 10.6 sec (10.0-12.5)
[2024-03-02] MEDS ORDERED: NITROGLYCERIN SL TABS 0.4 MG TAB SUBLINGUAL PRN (10:13)
[2024-03-02] MEDS: CITALOPRAM HYDROBROMIDE 20 MG TAB PO SCH (13:10)
[2024-03-02] MEDS: amLODIPine 5 MG TAB PO SCH (13:10)
[2024-03-02] MEDS: NITROGLYCERIN OINT 1 INCH/GM PACKET TOPICAL SCH (13:10)
[2024-03-02] MEDS: hydroCHLOROthiazide 25 MG TAB PO SCH (13:15)
[2024-03-02] MEDS: ACETAMINOPHEN TAB 325 MG TAB PO PRN (14:07)
[2024-03-02] MEDS ORDERED: ALPRAZolam 0.25 MG TAB PO PRN (16:23)
--- NOTE | 2024-03-02 16:26 | P.HPIM ---
History of Present Illness H&P Date: 03/02/24 63 year old F with PMH of Depression and Anxiety, HTN, Hypothyroid, GERD presents to the ED for chest pain. Started around 7:30AM while she was getting ready to go to [employer]. Tried taking Xanax 0.25 mg PO twice without relief. Chest pain is left sided, burning, pressure like and sharp at times. Not aggravated with movement or deep inspiration. It was constant initially but then became intermittent before resolving around 1:30PM. She denies any nausea, diaphoresis, shortness of breath or lightheadedness. In the ED she underwent extensive evaluation. BP 140/71, HR 70, T 98.6F, RR 14, 95% on RA. CBC, Coag panel, CMP significant for K 3.4, glu 127. D-Dimer 0.36. Troponin < 0.012 x 3 with EKG jessica wing NSR. Amylase and Lipase within normal limits. General: non toxic, no distress, appears at stated age Derm: warm, dry Head: atraumatic, normocephalic, symmetric Eyes: EOMI, no lid lag, anicteric sclera Mouth: no lip lesion, mucus membranes moist Cardiovascular: S1S2 reg, no murmur Lungs: Clear to auscultation bilaterally, no rhonchi, no rales , no accessory muscle use Ext: no gross muscle atrophy, no edema, no contractures Neuro: no focal neuro deficits Psych: Alert, oriented, appropriate affect Based on my assessment of this patient, this patient meets a high complexity level of care. Chest pain: ACS ruled out. Telemetry monitoring. Cardiology consult. Depression and Anxiety: Xanax 0.25 mg PO BID PRN. Citalopram 40 mg PO QD. HTN: HCTZ 25 mg PO QD. Amlodipine 5 mg PO QD. Hypothyroid: Synthroid 25 mcg PO QD. GERD: Protonix 40 mg PO Q2D. CODE STATUS: FULL CODE. DVT Prophylaxis: Lovenox SQ GI Prophylaxis: Protonix PO Designated medical POA if patient is not able to make medical decisions for themselves: I have reviewed the following absence management consultant notes: ED note. I have reviewed the results of the following tests: As above. I have ordered the following tests: As above. I have discussed the care of this patient with the following independent historian: Family I have independently interpreted the following test below: EKG I have discussed the management of this patient with the following physician: Past Medical History Past Medical History: GERD/Reflux, Hypertension, Thyroid Disorder Additional Past Medical History / Comment(s): HX OF DIVERTICULITIS History of Any Multi-Drug Resistant Organisms: None Reported Past Surgical History: Hysterectomy, Uterine Ablation Past Anesthesia/Blood Transfusion Reactions: No Reported Reaction Past Psychological History: Anxiety, Depression Smoking Status: Never smoker Past Alcohol Use History: Occasional Past Drug Use History: None Reported - Past Family History Mother Family Medical History: Hypertension Medications and Allergies Home Medications Medication Instructions Recorded Confirmed Type Citalopram Hydrobromide [CeleXA] 40 mg PO DAILY 02/05/15 03/02/24 History Levothyroxine Sodium [Synthroid] 25 mcg PO DAILY 12/17/22 03/02/24 History amLODIPine [Norvasc] 5 mg PO DAILY 12/17/22 03/02/24 History hydroCHLOROthiazide [Hydrodiuril] 25 mg PO DAILY 12/17/22 03/02/24 History ALPRAZolam [Xanax] 0.25 - 0.5 mg PO BID PRN 03/02/24 03/02/24 History Esomeprazole Magnesium [NexIUM] 40 mg PO Q48H 03/02/24 03/02/24 History Allergies Allergy/AdvReac Type Severity Reaction Status Date / Time cephalexin monohydrate Allergy Rash/Hives,ITCHY Verified 03/02/24 09:40 [From Keflex] MOUTH clarithromycin [From Biaxin] Allergy Rash/Hives,ITCHY Verified 03/02/24 09:40 MOUTH levofloxacin [From Levaquin] Allergy Rash/Hives,ITCHY Verified 03/02/24 09:40 MOUTH Sulfa (Sulfonamide Allergy Rash/Hives, Verified 03/02/24 09:40 Antibiotics) ITCHY MOUTH Physical Exam Vitals: Vital Signs Temp Pulse Pulse Pulse Resp BP BP 03/02/24 15:00 97.7 F 55 L 16 117/70 03/02/24 11:10 97.9 F 56 L 16 126/71 03/02/24 10:31 98.2 F 60 18 117/72 03/02/24 09:31 58 L 18 115/67 03/02/24 08:42 60 60 18 03/02/24 08:25 98.6 F 70 14 140/71 Pulse Ox 03/02/24 15:00 94 L 03/02/24 11:10 96 03/02/24 10:31 98 03/02/24 09:31 97 03/02/24 08:42 03/02/24 08:25 95 Intake and Output 03/02/24 03/02/24 03/02/24 06:59 14:59 22:59 Intake Total 118 Balance 118 Intake: Oral 118 Other: # Voids 1 Weight 112.491 kg Results CBC & Chem 7: 03/02/24 09:00 03/02/24 09:00 Labs: Abnormal Lab Results - Last 24 Hours (Table) 03/02/24 03/02/24 Range/Units 09:00 09:00 MCV 78.6 L (80.0-100.0) fL Potassium 3.4 L (3.5-5.1) mmol/L Glucose 127 H (74-99) mg/dL
[2024-03-03] MEDS: LEVOTHYROXINE 25 MCG TAB PO SCH (06:34)
[2024-03-03] MEDS ORDERED: DOBUTamine DRIP for NUC MED 500 MG in DEXTROSE/WATER 1 250ML.BAG IV PRN (07:37)
[2024-03-03] MEDS ORDERED: DOBUTamine DRIP for NUC MED 500 MG/250 ML BAG IV ONE (08:00)
[2024-03-03] MEDS: ASPIRIN 81 MG PO SCH (08:42)
[2024-03-03] MEDS: ENOXAPARIN 40 MG/0.4 ML SYRINGE SQ SCH (08:43)
[2024-03-03 08:48] LABS: Chol/HDL Ratio 6.91 Ratio; LDL Cholesterol,Calculated 145.3 mg/dL (0.0-131.0)
[2024-03-03] MEDS ORDERED: ASPIRIN 325 MG TAB PO SCH (09:00)
--- NOTE | 2024-03-03 10:14 | P.CRDCN ---
History of Present Illness Consult date: 03/03/24 Consult reason: chest pain History of present illness: This is a 63-year-old female patient of Dr. Brand with past medical history of hypertension, dyslipidemia, obstructive sleep apnea, hypothyroidism, gastroesophageal reflux disease. We have been asked to evaluate the patient for chest pain. Patient states that she was getting ready for [employer] on Sunday morning and developed chest pain but thought it was stress related and took a Xanax. The Xanax did not seem to help so she ended up taking a second 1. She states she has not had any chest pain since she had stents done a year ago. She is feeling exhausted because she had a baby shower at her house the day before. The pain lasted until about 130. EKG: Sinus rhythm with no acute ST-T wave changes. Chest x-ray: No acute process. Laboratory studies: WBC 8.4, hemoglobin 13.7. D-dimer 0.36. Potassium 3.4. Creatinine 0.9. Troponin negative x 3. Triglycerides 210, cholesterol 219, LDL 145, HDL 31. Home cardiac medications: Amlodipine 5 mg daily, hydrochlorothiazide 25 mg d aily, also on levothyroxine 25 mcg daily. Review Of Systems: At the time of my exam: CONSTITUTIONAL: Denies fever or chills. HEENT: Denies blurred vision, vision changes, or eye pain. Denies hemoptysis CARDIOVASCULAR: Denies chest pain. Denies orthopnea. Denies PND. Denies palpitations RESPIRATORY: Denies shortness of breath. GASTROINTESTINAL: Denies abdominal pain. Denies nausea or vomiting. HEMATOLOGIC: Denies bleeding disorders. GENITOURINARY: Denies any blood in urine. SKIN: Denies puritis. Denies rash. Physical examination: Gen: This is [ ] VS: reviewed HEENT: Head is atraumatic, normocephalic. Pupils equal, round. Sclerae is anicteric. NECK: Supple. No JVD. LUNGS: Clear to auscultation. No wheezes or rhonchi. No intercostal retractions. HEART: Regular rate and rhythm. No murmur. ABDOMEN: Soft No tenderness. EXTREMITIES: No pedal edema. No calf tenderness. NEUROLOGICAL: Patient is awake, alert and oriented x3. Assessment: Atypical chest pain, acute coronary syndrome ruled out Hypertension Dyslipidemia Obstructive sleep apnea Hypothyroidism GERD Plan: Resume patient's home cardiac medications Schedule patient for dobutamine stress echo today Obtain 2-D echocardiogram and Doppler study to assess cardiac structure and function Further recommendations to follow based upon clinical course Thank you kindly for this consultation. Nurse practitioner note has been reviewed, I agree with documented findings and plan of care. Patient was seen and examined. Past Medical History Past Medical History: GERD/Reflux, Hypertension, Thyroid Disorder Additional Past Medical History / Comment(s): HX OF DIVERTICULITIS History of Any Multi-Drug Resistant Organisms: None Reported Past Surgical History: Hysterectomy, Uterine Ablation Past Anesthesia/Blood Transfusion Reactions: No Reported Reaction Past Psychological History: Anxiety, Depression Smoking Status: Never smoker Past Alcohol Use History: Occasional Past Drug Use History: None Reported - Past Family History Mother Family Medical History: Hypertension Medications and Allergies Home Medications Medication Instructions Recorded Confirmed Type Citalopram Hydrobromide [CeleXA] 40 mg PO DAILY 02/05/15 03/02/24 History Levothyroxine Sodium [Synthroid] 25 mcg PO DAILY 12/17/22 03/02/24 History amLODIPine [Norvasc] 5 mg PO DAILY 12/17/22 03/02/24 History hydroCHLOROthiazide [Hydrodiuril] 25 mg PO DAILY 12/17/22 03/02/24 History ALPRAZolam [Xanax] 0.25 - 0.5 mg PO BID PRN 03/02/24 03/02/24 History Esomeprazole Magnesium [NexIUM] 40 mg PO Q48H 03/02/24 03/02/24 History Allergies Allergy/AdvReac Type Severity Reaction Status Date / Time cephalexin monohydrate Allergy Rash/Hives,ITCHY Verified 03/02/24 09:40 [From Keflex] MOUTH clarithromycin [From Biaxin] Allergy Rash/Hives,ITCHY Verified 03/02/24 09:40 MOUTH levofloxacin [From Levaquin] Allergy Rash/Hives,ITCHY Verified 03/02/24 09:40 MOUTH Sulfa (Sulfonamide Allergy Rash/Hives, Verified 03/02/24 09:40 Antibiotics) ITCHY MOUTH Physical Exam Vitals: Vital Signs Temp Pulse Pulse Pulse Resp BP BP 03/03/24 08:24 03/03/24 07:25 97.8 F 56 L 16 112/70 03/03/24 02:00 98.0 F 62 17 03/03/24 01:24 60 74 16 03/02/24 20:49 60 74 16 03/02/24 18:51 99.6 F 74 16 03/02/24 15:00 97.7 F 55 L 16 03/02/24 11:10 97.9 F 56 L 16 03/02/24 10:31 98.2 F 60 18 117/72 BP Pulse Ox 03/03/24 08:24 94 L 03/03/24 07:25 95 03/03/24 02:00 111/73 95 03/03/24 01:24 03/02/24 20:49 03/02/24 18:51 149/79 94 L 03/02/24 15:00 117/70 94 L 03/02/24 11:10 126/71 96 03/02/24 10:31 98 Intake and Output 03/02/24 03/03/24 03/03/24 22:59 06:59 14:59 Intake Total 236 Balance 236 Intake: Oral 236 Other: # Voids 1 2 Results 03/02/24 09:00 03/02/24 09:00 Cardiac Enzymes 03/02/24 03/02/24 Range/Units 10:49 14:18 Troponin I <0.012 <0.012 (0.000-0.034) ng/mL Lipids 03/03/24 Range/Units 04:54 Triglycerides 210.00 H (0.00-149.00) mg/dL Cholesterol 219.00 H (0.00-200.00) mg/dL HDL Cholesterol 31.70 L (40.00-60.00) mg/dL Cholesterol/HDL Ratio 6.91 Ratio Current Medications Generic Name Dose Route Start Last Admin Trade Name Freq PRN Reason Stop Dose Admin Acetaminophen 650 mg 03/02/24 13:51 03/02/24 21:39 Acetaminophen Tab 325 Mg Tab PO 650 mg Q6HR PRN Administration Fever and/ or Pain Alprazolam 0.25 mg 03/02/24 16:23 Alprazolam 0.25 Mg Tab PO BID PRN Anxiety Amlodipine Besylate 5 mg 03/02/24 13:00 03/03/24 08:43 Amlodipine 5 Mg Tab PO 5 mg DAILY IRENE Administration Aspirin 81 mg 03/03/24 09:00 03/03/24 08:42 Aspirin 81 Mg PO 81 mg DAILY IRENE Administration Citalopram Hydrobromide 40 mg 03/02/24 13:00 03/03/24 08:43 Citalopram Hydrobromide 20 Mg Tab PO 40 mg DAILY IRENE Administration Enoxaparin Sodium 40 mg 03/03/24 09:00 03/03/24 08:43 Enoxaparin 40 Mg/0.4 Ml Syringe SQ 40 mg DAILY IRENE Administration Hydrochlorothiazide 25 mg 03/02/24 13:00 03/03/24 08:42 Hydrochlorothiazide 25 Mg Tab PO 25 mg DAILY IRENE Administration Dobutamine HCl/Dextrose 500 mg 250 mls @ 33.747 mls/hr 03/03/24 07:37 / IV Solution IV 03/03/24 11:38 .Q7H25M PRN Per Protocol Protocol 10 MCG/KG/MIN Levothyroxine Sodium 25 mcg 03/03/24 06:30 03/03/24 06:34 Levothyroxine 25 Mcg Tab PO 25 mcg DAILY@0630 IRENE Administration Nitroglycerin 0.4 mg 03/02/24 10:13 Nitroglycerin Sl Tabs 0.4 Mg Tab SUBLINGUAL Q5M PRN Chest Pain Pantoprazole Sodium 40 mg 03/04/24 07:30 Pantoprazole 40 Mg Tablet PO Q48H IRENE Intake and Output 03/02/24 03/03/24 03/03/24 22:59 06:59 14:59 Intake Total 236 Balance 236 Intake: Oral 236 Other: # Voids 1 2 03/02/24 09:00 03/02/24 09:00
--- NOTE | 2024-03-03 13:38 | P.DS ---
Providers Date of admission: 03/02/24 10:14 Expected date of discharge: 03/03/24 Attending physician: Zi Beckford Consults: 03/02/24 10:13 Consult Physician Urgent Consulting Provider: Terell Brand Consult Reason/Comments: cp Do you want consulting provider notified?: Yes Primary care physician: [facility] Course: 63 year old F with PMH of Depression and Anxiety, HTN, Hypothyroid, GERD presents to the ED for chest pain. Started around 7:30AM while she was getting ready to go to [employer]. Tried taking Xanax 0.25 mg PO twice without relief. Chest pain is left sided, burning, pressure like and sharp at times. Not aggravated with movement or deep inspiration. It was constant initially but then became intermittent before resolving around 1:30PM. She denies any nausea, diaphoresis, shortness of breath or lightheadedness. In the ED she underwent extensive evaluation. BP 140/71, HR 70, T 98.6F, RR 14, 95% on RA. CBC, Coag panel, CMP significant for K 3.4, glu 127. D-Dimer 0.36. Troponin < 0.012 x 3 with EKG showing NSR. Amylase and Lipase within normal limits. 03/03 Patient was seen and examined. No chest pain. Cardiology consulted, underwent Lexiscan. Results are currently pending however discussed with Pattie NARVAEZ, cleared for discharge from Cardiology perspective. Lipitor panel T. Chol 219, LDL 145.3, HDL 31.7. Patient open to starting low dos e statin. General: non toxic, no distress, appears at stated age Derm: warm, dry Head: atraumatic, normocephalic, symmetric Eyes: EOMI, no lid lag, anicteric sclera Mouth: no lip lesion, mucus membranes moist Cardiovascular: S1S2 reg, no murmur Lungs: Clear to auscultation bilaterally, no rhonchi, no rales , no accessory muscle use Ext: no gross muscle atrophy, no edema, no contractures Neuro: no focal neuro deficits Psych: Alert, oriented, appropriate affect Discharge Diagnosis: Chest pain Dyslipidemia Depression and Anxiety HTN Hypothyroid GERD This complex discharge took 35 minutes to complete. Patient Condition at Discharge: Stable Plan - Discharge Summary Discharge Rx Participant: No New Discharge Prescriptions: No Action Citalopram Hydrobromide [CeleXA] 40 mg PO DAILY hydroCHLOROthiazide [Hydrodiuril] 25 mg PO DAILY ALPRAZolam [Xanax] 0.25 - 0.5 mg PO BID PRN PRN Reason: Anxiety amLODIPine [Norvasc] 5 mg PO DAILY Levothyroxine Sodium [Synthroid] 25 mcg PO DAILY Esomeprazole Magnesium [NexIUM] 40 mg PO Q48H Discharge Medication List Citalopram Hydrobromide [CeleXA] 40 mg PO DAILY 02/05/15 [History] Levothyroxine Sodium [Synthroid] 25 mcg PO DAILY 12/17/22 [History] amLODIPine [Norvasc] 5 mg PO DAILY 12/17/22 [History] hydroCHLOROthiazide [Hydrodiuril] 25 mg PO DAILY 12/17/22 [History] ALPRAZolam [Xanax] 0.25 - 0.5 mg PO BID PRN 03/02/24 [History] Esomeprazole Magnesium [NexIUM] 40 mg PO Q48H 03/02/24 [History] Follow up Appointment(s)/Referral(s): Ashkan Rose DO [Primary Care Provider] - 1-2 days Discharge/Stand Alone Forms: Who Do I Call?, Community Resources, Outpatient Counseling
--- NOTE | 2024-03-03 14:27 | CA ---
Dobutamine Stress Echocardiogram Report Ele Tian Age: 63 Gender: F : 1960 Exam Date: 03/03/2024 11:32 Exam Location: [place] [facility] Ordering Physician: Pattie Rachel Referring Physician: Virginie FUNK Gluing Machine Offbearer: Cassidy Harrell RDCS Technologist: Ht (in): 66 Wt (lb): 248 Procedure CPT: Indication: Chest Pain ICD-9 Codes: Rhythm: Patient History: CHEST PAIN, PALPITATIONS, HTN, HYPERCHOLESTEROLEMIA, FAMILY HX OF HEART DISEASE, PRIOR SMOKER Cardiac Medications: Medications in past 24 hours: Contrast: Total Dose (mL): Stress Results Protocol: Dobutamine Peak Dose (???g/kg/min): 30 Duration (min:sec): Atropine:(mg) N/A Target HR: 135 Double Product: [id number] Resting HR: 56 Resting BP: 131 / 74 Peak HR: 136 Peak BP: 194 / 82 Max Predicted HR: 159 86 % Max Predicted HR Stress Summary: BP Response: Reason for Termination: Target HR Cardiac Symptoms: NO SYMPTOMS ECG Analysis Resting EKG: Normal sinus rhythm normal axis normal intervals Stress EKG: Patient was given intravenous dobutamine over 9 minutes per protocol achieving 85% of predicted maximal heart rate without chest pain or diagnostic ST segment depression Arrhythmia: Echo Analysis Base Echo Analysis: Normal left ventricular size wall motion and systolic function Low Echo Anaylsis: Normal hyperdynamic response Peak Echo Analysis: Normal hyperdynamic response Recovery Echo: Normal MEASUREMENTS (Male/Female) Normal Values CONCLUSIONS Negative dobutamine stress echo Dr. Clive Hooks MD (Electronically Signed) Final Date: 03 March 2024 14:26
--- NOTE | 2024-03-03 14:28 | CA ---
Transthoracic Echo Report Name: Ele Tian Age: 63 Gender: F : 1960 Exam Date: 03/03/2024 09:24 Exam Location: [place] [facility] Ht (in): 66 Wt (lb): 248 Ordering Physician: Pattie Rachel Attending/Referring Phys: [id number], Virginie Nursing Specialist Cassidy Harrell RDCS Procedure CPT: Indications: Chest Pain Cardiac Hx: Technical Quality: Fair Contrast 1: Total Dose (mL): Contrast 2: Total Dose (mL): MEASUREMENTS (Male / Female) Normal Values 2D ECHO LV Diastolic Diameter PLAX 4.5 cm 4.2 - 5.9 / 3.9 - 5.3 cm LV Systolic Diameter PLAX 2.7 cm IVS Diastolic Thickness 1.0 cm 0.6 - 1.0 / 0.6 - 0.9 cm LVPW Diastolic Thickness 1.0 cm 0.6 - 1.0 / 0.6 - 0.9 cm LV Relative Wall Thickness 0.4 RV Internal Dim ED PLAX 4.2 cm LA Volume 52.6 cm??? 18 - 58 / 22 - 52 cm??? LA Volume Index 22.5 cm???/m??? 16 - 28 cm???/m??? M-MODE Aortic Root Diameter MM 3.7 cm LA Systolic Diameter MM 3.7 cm LA Ao Ratio MM 1.0 AV Cusp Separation MM 1.8 cm DOPPLER AV Peak Velocity 129.7 cm/s AV Peak Gradient 6.7 mmHg AV Mean Velocity 86.8 cm/s AV Mean Gradient 3.3 mmHg AV Velocity Time Integral 28.1 cm LVOT Peak Velocity 102.5 cm/s LVOT Peak Gradient 4.2 mmHg LVOT Velocity Time Integral 22.9 cm MV Area PHT 3.2 cm??? Mitral E Point Velocity 81.6 cm/s Mitral A Point Velocity 70.6 cm/s Mitral E to A Ratio 1.2 MV Deceleration Time 238.0 ms MV E' Velocity 7.1 cm/s Mitral E to MV E' Ratio 11.5 FINDINGS Left Ventricle Mildly increased left ventricular wall thickness. Left ventricular cavity size normal. Normal left ventricular systolic function with no obvious regional wall motion abnormalities. Left ventricular ejection fraction is estimated at 55-60 %. Grade 1 diastolic dysfunction. Right Ventricle Mild right ventricular dilatation. Right ventricular systolic pressure within normal limits. Right Atrium Normal right atrial size. Left Atrium Normal left atrial size. Mitral Valve Structurally normal mitral valve. Mild mitral annular calcification. Trace to mild mitral regurgitation. Aortic Valve Trileaflet aortic valve. No aortic valve stenosis or regurgitation. Tricuspid Valve Structurally normal tricuspid valve. Trace to mild tricuspid regurgitation. Pulmonic Valve Structurally normal pulmonic valve. Pericardium No pericardial effusion. Aorta Normal size aortic root and proximal ascending aorta. CONCLUSIONS Normal LV function Previewed by: Dr. Clive Hooks MD (Electronically Signed) Final Date: 03 March 2024 14:27
[2024-03-03 14:57] VITALS: BP 116/71; PULSE 63; RESP 17; TEMP 97.9
[2024-03-04] MEDS ORDERED: PANTOPRAZOLE 40 MG TABLET PO SCH (07:30)
== END 2024-03-03 14:39 | disposition home or self-care (01) ==
LOC: EC 08:23 → 6NMEDSUR 10:14
PROVIDERS: ADMIT Student in an Organized Health Care Education/Training Program; ATTEND Student in an Organized Health Care Education/Training Program
DX: R07.89 Other chest pain (principal); E03.9 Hypothyroidism, unspecified; I10 Essential (primary) hypertension; K21.9 Gastro-esophageal reflux disease without esophagitis; E78.5 Hyperlipidemia, unspecified; G47.33 Obstructive sleep apnea (adult) (pediatric); F32.A Depression, unspecified; F41.9 Anxiety disorder, unspecified; Z79.890 Hormone replacement therapy; Z79.899 Other long term (current) drug therapy; Z88.1 Allergy status to other antibiotic agents; Z88.2 Allergy status to sulfonamides; Z95.5 Presence of coronary angioplasty implant and graft
CPT/HCPCS: 96372; 99285; 36415; 94760; 93005; 93306; 93351; 85379; 80061; 80053; 82150; 83690; 83735; 84484; 85025; 85610; 85730; 71046; G0378 ×2; J1250; J1650